=== PATIENT | female | born 1955 | race Caucasian/White ===

== ENCOUNTER 2023-02-27 08:32 | Day surgery (SDC) | payer MEDICARE ==
[2023-02-27] MEDS ORDERED: EPINEPHrine 1 MG/ML VIAL ONE (09:30)
[2023-02-27] MEDS ORDERED: Bupivacaine PF 0.5% 30 ML VIAL ONE (09:30)
[2023-02-27] MEDS ORDERED: fentaNYL PF 100 MCG/2 ML SYRINGE ONE (10:39)
[2023-02-27] MEDS ORDERED: PROPOFOL 20 ML ONE (10:39)
[2023-02-27] MEDS ORDERED: Lidocaine 2% PF 5 ML VIAL ONE (10:40)
[2023-02-27] MEDS ORDERED: Succinylcholine 200 MG/10 ml SYRINGE FS ONE ×2 (10:40→11:09)
[2023-02-27] MEDS ORDERED: Rocuronium Bromide 10 MG/ML (10ML VIAL) ONE ×2 (10:40→11:09)
[2023-02-27] MEDS ORDERED: Ketorolac Tromethamine 30 MG/ML VIAL ONE (10:58)
[2023-02-27] MEDS ORDERED: Scopolamine 1 mg/72 hour Patch ONE (10:58)
[2023-02-27] MEDS ORDERED: LevoFLOXacin 500 mg/D5W 100 ML BAG ONE (10:59)
[2023-02-27] MEDS ORDERED: PROPOFOL 200 MG/20 ML VIAL ONE (11:09)
[2023-02-27] MEDS ORDERED: PHENYLEPHRINE-NS 100 MCG/ML 10 ML SYRINGE ONE ×2 (11:09→11:19)
[2023-02-27] MEDS ORDERED: Dexamethasone 20 MG/5 ML VIAL ONE ×2 (11:09→11:17)
[2023-02-27] MEDS ORDERED: Ondansetron PF 4 MG/2 ML Vial ONE ×3 (11:09→12:33)
[2023-02-27] MEDS ORDERED: Lidocaine 1% PF 5 ML VIAL ONE (11:09)
[2023-02-27] MEDS ORDERED: Acetaminophen 500 MG TAB PO PRN (14:29)
[2023-02-27] MEDS ORDERED: Ibuprofen 600 MG TAB PO PRN (14:30)
[2023-02-27] MEDS ORDERED: Promethazine HCl 25 MG SUPP PR SCH (14:30)
[2023-02-27] MEDS ORDERED: traMADol HCl 50 MG TAB PO PRN (14:31)
== END 2023-02-27 16:42 | disposition home or self-care (01) ==
LOC: SDC 08:32
PROVIDERS: ATTEND Specialist
PROC: 0FT44ZZ Resection of Gallbladder, Percutaneous Endoscopic Approach (ICD-10-PCS; principal; 2023-02-27)
DX: K80.10 Calculus of gallbladder with chronic cholecystitis without obstruction (principal); K82.1 Hydrops of gallbladder; I10 Essential (primary) hypertension
CPT/HCPCS: 47562; C1889; J0171; 88304; J1100; J1885; J1956; J2001; J2405; J2704; S0020

== ENCOUNTER 2023-03-04 10:39 | Inpatient (IN) | payer MEDICARE ==
[2023-03-04] MEDS ORDERED: Ondansetron PF 4 MG/2 ML Vial IVP PRN (10:56)
[2023-03-04] MEDS ORDERED: Morphine 2 MG/ML VIAL SLOW IVP PRN (10:56)
[2023-03-04] MEDS ORDERED: Ipratropium/Albuterol 3 ML NEB NEB PRN (10:56)
[2023-03-04] MEDS ORDERED: Acetaminophen 325 MG TAB PO SCH (11:00)
[2023-03-04 11:22] LABS: #Basophils 0.1 thou/uL (0.0-0.2); #Monocytes 0.5 thou/uL (0.11-0.59); %Basophils 0.5 % (0.0-1.0); %Eosinophils 0.4 % (0.0-10.0); %Lymphocytes 9.7 % (21.0-51.0); %Neutrophils 84.1 % (42.0-75.0); Hematocrit 44.3 % (36.0-47.0); Hemoglobin 14.8 g/dL (12.0-16.0); Mean Corpuscular HGB CONC 33.4 g/dL (32.0-36.0); Mean Corpuscular Hemoglobin 29.5 pg (27.0-31.0); Mean Corpuscular Volume 88.4 fl (78.0-98.0); Mean Platelet Volume 9.3 fL (7.4-10.4); Platelet Count 325 10x3/uL (130-400); RBC Distribution Width 12.4 % (11.5-14.5); Red Blood Cell (RBC) Count 5.01 mill/uL (4.20-5.40); White Blood Cell (WBC) Count 10.7 10x3/uL (4.8-10.8)
[2023-03-04 11:44] LABS: Anion Gap 15 mmol/L (10-20); BUN (Urea Nitrogen) 18 mg/dL (9.8-20.1); Calc. Creatinine Clearance 0 mL/min (70-130); Calcium 9.4 mg/dL (7.8-10.44); Carbon Dioxide 30 mmol/L (23-31); Chloride 99 mmol/L (98-107); Estimated GFR 81; Glucose 101 mg/dL (80-115); Magnesium 1.8 mg/dL (1.6-2.6); Phosphorus 3.4 mg/dL (2.3-4.7); Potassium 3.3 mmol/L (3.5-5.1); Sodium 141 mmol/L (136-145)
[2023-03-04 11:51] LABS: ALT (SGPT) 497 U/L (8-55); AST (SGOT) 323 U/L (5-34); Albumin 3.9 g/dL (3.4-4.8); Alkaline Phosphatase 381 U/L (40-110); Bilirubin, Direct 4.7 mg/dL (0.1-0.3); Bilirubin, Total 6.6 mg/dL (0.2-1.2); Protein, Total 6.7 g/dL (5.8-8.1)
[2023-03-04 11:57] LABS: Prothrombin Time 13.3 sec (12.0-14.7)
[2023-03-04] MEDS: Sodium Chloride 0.9% 1,000 ML IV SCH ×2 (11:57→19:20)
[2023-03-04] MEDS: Acetaminophen 500 MG TAB PO SCH ×2 (11:57→16:38)
[2023-03-04 11:58] LABS: PTT 22.2 sec (22.9-36.1)
[2023-03-04] MEDS ORDERED: Iopamidol 0 ML ONE (12:02)
[2023-03-04] MEDS ORDERED: Indomethacin 50 MG SUPP ONE (12:03)
[2023-03-04 12:04] LABS: Lipase 3630 U/L (8-78)
[2023-03-04 12:05] VITALS: BMI 25.7
[2023-03-04] MEDS ORDERED: Succinylcholine 200 MG/10 ml SYRINGE FS ONE ×2 (12:09→12:36)
[2023-03-04] MEDS ORDERED: Ondansetron PF 4 MG/2 ML Vial ONE ×2 (12:09→12:36)
[2023-03-04] MEDS ORDERED: Lidocaine 1% PF 5 ML VIAL ONE ×2 (12:09→12:36)
[2023-03-04] MEDS ORDERED: Dexamethasone 20 MG/5 ML VIAL ONE (12:10)
[2023-03-04] MEDS ORDERED: Rocuronium Bromide 10 MG/ML (10ML VIAL) ONE ×2 (12:10→12:36)
[2023-03-04] MEDS ORDERED: PROPOFOL 20 ML ONE (12:10)
[2023-03-04] MEDS ORDERED: Famotidine/PF 20 mg/2ml Vial ONE (12:19)
[2023-03-04] MEDS ORDERED: Metoclopramide HCl 10 MG/2 ML VIAL ONE ×2 (12:22→12:36)
[2023-03-04] MEDS ORDERED: fentaNYL 50 mcg/mL 1 mL Vial ONE (12:23)
[2023-03-04] MEDS ORDERED: Promethazine HCl 25 MG SUPP PR SCH (12:30)
[2023-03-04] MEDS ORDERED: LevoFLOXacin 500 mg/D5W 100 ML BAG ONE (12:30)
[2023-03-04] MEDS ORDERED: PROPOFOL 200 MG/20 ML VIAL ONE (12:36)
[2023-03-04] MEDS ORDERED: PHENYLEPHRINE-NS 100 MCG/ML 10 ML SYRINGE ONE ×2 (12:36→12:47)
[2023-03-04] MEDS ORDERED: Albumin 5% 500 ML ONE (12:59)
[2023-03-04] MEDS ORDERED: Iopamidol 30 ML ONE (13:08)
[2023-03-04] MEDS ORDERED: SUGAMMADEX SODIUM 200 MG/2 ML VIAL ONE (13:37)
[2023-03-04] MEDS ORDERED: Ondansetron HCl/PF 4 MG/2 ML Vial IVP PRN (13:55)
[2023-03-04] MEDS ORDERED: HYDROmorphone 2 MG/ML VIAL SLOW IVP PRN (13:55)
[2023-03-04] MEDS ORDERED: Morphine Sulfate 2 MG/ML SYRINGE SLOW IVP PRN (13:55)
[2023-03-04] MEDS ORDERED: Meperidine HCl/PF 25 MG/ML VIAL SLOW IVP PRN (13:55)
[2023-03-04] MEDS ORDERED: Cyclobenzaprine 10 MG TAB PO PRN (14:55)
[2023-03-04] MEDS ORDERED: traMADol HCl 50 MG TAB PO PRN (14:55)
[2023-03-04] MEDS ORDERED: Magnesium 2 GM/50 ML(in water) 2 GM in Premix 1 BAG IVPB SCH (15:00)
[2023-03-04] MEDS ORDERED: Potassium Chloride 20 MEQ in Premix 1 BAG IVPB SCH (15:00)
[2023-03-04] MEDS: LevoFLOXacin 500 mg/D5W 500 MG in Premix 1 BAG IVPB SCH (15:09)
[2023-03-04] MEDS: traMADol HCl 50 MG TAB PO SCH (16:38)
[2023-03-04] MEDS: Famotidine/PF 20 mg/2ml Vial SLOW IVP SCH (21:59)
[2023-03-05] MEDS: Acetaminophen 500 MG TAB PO SCH ×5 (00:22→19:26)
[2023-03-05] MEDS: traMADol HCl 50 MG TAB PO SCH ×4 (00:23→18:00)
[2023-03-05] MEDS: Sodium Chloride 0.9% 1,000 ML IV SCH (02:30)
[2023-03-05 06:12] LABS: #Monocytes 0.6 thou/uL (0.11-0.59); #Neutrophils 7.4 thou/uL (1.40-6.50); %Basophils 0.2 % (0.0-1.0); %Eosinophils 0.2 % (0.0-10.0); %Lymphocytes 15.2 % (21.0-51.0); %Monocytes 5.8 % (0.0-10.0); %Neutrophils 78.1 % (42.0-75.0); Mean Corpuscular HGB CONC 34.1 g/dL (32.0-36.0); Mean Corpuscular Volume 88.1 fl (78.0-98.0); Platelet Count 241 10x3/uL (130-400); RBC Distribution Width 12.4 % (11.5-14.5); White Blood Cell (WBC) Count 9.5 10x3/uL (4.8-10.8)
[2023-03-05 06:41] LABS: ALT (SGPT) 281 U/L (8-55); AST (SGOT) 151 U/L (5-34); Albumin 3.2 g/dL (3.4-4.8); Alkaline Phosphatase 251 U/L (40-110); Anion Gap 9 mmol/L (10-20); BUN (Urea Nitrogen) 17 mg/dL (9.8-20.1); Bilirubin, Direct 1.8 mg/dL (0.1-0.3); Bilirubin, Total 3.2 mg/dL (0.2-1.2); Calc. Creatinine Clearance 77 mL/min (70-130); Calcium 8.2 mg/dL (7.8-10.44); Carbon Dioxide 27 mmol/L (23-31); Chloride 106 mmol/L (98-107); Estimated GFR 87; Glucose 93 mg/dL (80-115); Lipase 147 U/L (8-78); Magnesium 2.2 mg/dL (1.6-2.6); Potassium 3.2 mmol/L (3.5-5.1); Sodium 139 mmol/L (136-145)
[2023-03-05 06:58] LABS: Hematocrit 31.7 % (36.0-47.0); Hemoglobin 10.8 g/dL (12.0-16.0)
[2023-03-05] MEDS: Famotidine/PF 20 mg/2ml Vial SLOW IVP SCH ×2 (08:44→21:07)
[2023-03-05] MEDS: Potassium Chloride 20 MEQ TAB PO SCH ×2 (08:44→17:58)
[2023-03-05] MEDS: LevoFLOXacin 500 mg/D5W 500 MG in Premix 1 BAG IVPB SCH (12:19)
[2023-03-05] MEDS ORDERED: Phenol 177 ML BOT PO PRN (19:47)
[2023-03-06] MEDS: Acetaminophen 500 MG TAB PO SCH ×2 (00:30→05:57)
[2023-03-06] MEDS: traMADol HCl 50 MG TAB PO SCH ×2 (00:30→05:57)
[2023-03-06 08:43] VITALS: BP 147/80; TEMP 97.7
[2023-03-06] MEDS: Potassium Chloride 20 MEQ TAB PO SCH (10:11)
[2023-03-06] MEDS: Famotidine/PF 20 mg/2ml Vial SLOW IVP SCH (10:24)
== END 2023-03-06 12:21 | disposition home or self-care (01) | DRG 444 ==
LOC: T4-B 10:40
PROVIDERS: ADMIT Student in an Organized Health Care Education/Training Program; ATTEND Student in an Organized Health Care Education/Training Program
PROC: 0FC98ZZ Extirpation of Matter from Common Bile Duct, Via Natural or Artificial Opening Endoscopic (ICD-10-PCS; principal; 2023-03-04)
PROC: BF101ZZ Fluoroscopy of Bile Ducts using Low Osmolar Contrast (ICD-10-PCS; 2023-03-04)
DX: K80.50 Calculus of bile duct without cholangitis or cholecystitis without obstruction (principal); K85.10 Biliary acute pancreatitis without necrosis or infection; Z90.710 Acquired absence of both cervix and uterus; I10 Essential (primary) hypertension
CPT/HCPCS: 36415; 74330; 80048; 80053; 80076; 83690; 83735; 84100; 85025; 85610; 85730; 86850; 86900; 86901; C1725; J1100; J1956; J2405; J2704; J2765; J3010; J3475; J3480; J7050; P9045; Q9967; S0028